=== PATIENT | female | born 1960 | race Two or more races ===

== ENCOUNTER 2023-10-29 21:04 | Emergency (ER) | payer OTHER ==
[~2023-10-29] VITALS: Ht 180.3 cm; Wt 89.8 kg
[~2023-10-29 21:04] MED LIST: ATENOLOL25 GM; LASIX20 MG PO; MOTRIN800 MG PO; NORTUSS-EX LIQ118 ML PO; ORPH100T PO; TESSALON PERLE100 M1 PO; TRAMADOL HCL25 GM MC; ZITHROMAX TRI-500 MG PO
[2023-10-29] MEDS ORDERED: LIDOCAINE HCL 100 MG/10ML VIAL PERCUT ONE (21:45)
[2023-10-29] MEDS ORDERED: CIPRO500 MG PO (23:06)
== END 2023-10-30 00:05 ==
LOC: ER 21:05
DX: S01.82XA Laceration with foreign body of other part of head, initial encounter (principal); W01.0XXA Fall on same level from slipping, tripping and stumbling without subsequent striking against object, initial encounter; Y93.89 Activity, other specified; Y92.018 Other place in single-family (private) house as the place of occurrence of the external cause; Z88.0 Allergy status to penicillin

== ENCOUNTER 2023-11-11 10:21 | Emergency (ER) | payer OTHER ==
[~2023-11-11] VITALS: Ht 180.3 cm; Wt 89.8 kg
[~2023-11-11 10:21] MED LIST changes: +CIPRO500 MG PO
== END 2023-11-11 11:55 | disposition home or self-care (01) ==
LOC: ER 10:21
DX: Z48.02 Encounter for removal of sutures (principal)